=== PATIENT | female | born 1965 | race Caucasian/White ===

== ENCOUNTER 2016-09-21 11:54 | Emergency (ER) | payer BC, MEDICARE ==
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
--- NOTE | 2016-09-21 14:24 | CR ---
Chest: Portable view of the chest was obtained. Comparison: Previous chest x-ray of 03/16/16. Heart is mildly enlarged. Tortuous thoracic aorta is seen. Previous cervical spine surgery is noted. Lungs are clear. Impression: 1. Nothing acute is appreciated on portable chest x-ray. Diagnostic code #2
[2016-09-21] MEDS ORDERED: Ketorolac 60 MG/2 ML SDV IM ONE (14:53)
[2016-09-21] MEDS ORDERED: Ketorolac 30 MG/ML SDV IVPUSH ONE (15:10)
--- NOTE | 2016-09-21 15:16 | CT ---
Head CT Technique: Multiple axial sections through the brain were obtained. Intravenous contrast was not utilized. Comparison: Previous head CT study of 03/16/16. Findings: Ventricles along with basal cisterns and sulci over the convexities are within normal limits for the patient's age. No abnormal parenchymal densities are seen. No evidence of intracranial hemorrhage. No midline shift or mass effect is seen. Bone window settings were reviewed which shows mild mucosal thickening within the left maxillary sinus. Small air-fluid levels are noted within the right maxillary sinus and within the sphenoid sinus. Mild mucosal thickening is seen within sphenoid and ethmoid sinuses and frontal sinuses. Mastoid sinuses are clear. Middle ear cavities are clear. No acute calvarial abnormality is seen. Impression: 1. Sinus findings including several air-fluid levels and difficult to exclude acute sinusitis. Please correlate with the patient's symptoms. 2. No acute intracranial abnormality is seen. Diagnostic code #3
--- NOTE | 2016-09-21 15:16 | CT ---
CT cervical spine Technique: Multiple axial sections through the cervical spine were obtained. Reconstructed sagittal and coronal images were reviewed. Comparison: Previous CT cervical spine exam of 03/16/16. Findings: Degenerative change is again seen between the dens and anterior arch of C1. Anterior plate and screws are seen at C3-C4, C4-C5, C5-C6 and C6-C7. Multiple areas of neural foraminal stenosis are seen which is most severe at C3-C4 with severe stenosis on the left side and moderate to severe on the right side. No fracture is seen. No abnormal subluxation is identified. Impression: 1. Previous surgery. Degenerative change. No acute fracture or abnormal subluxation is seen. No significant change is seen from prior CT cervical spine. Diagnostic code #2
[2016-09-21 16:08] VITALS: BP 122/70
== END 2016-09-21 15:53 | disposition home or self-care (01) ==
LOC: JD.ED 11:54
DX: S06.0X9A Concussion with loss of consciousness of unspecified duration, initial encounter (principal); W19.XXXA Unspecified fall, initial encounter; Z88.0 Allergy status to penicillin; Z88.8 Allergy status to other drugs, medicaments and biological substances; Z91.030 Bee allergy status; Z79.899 Other long term (current) drug therapy; I10 Essential (primary) hypertension; K21.9 Gastro-esophageal reflux disease without esophagitis; M19.90 Unspecified osteoarthritis, unspecified site; Z96.652 Presence of left artificial knee joint; F91.8 Other conduct disorders; F41.9 Anxiety disorder, unspecified; F32.9 Major depressive disorder, single episode, unspecified; E66.9 Obesity, unspecified; Z68.30 Body mass index [BMI] 30.0-30.9, adult; E55.9 Vitamin D deficiency, unspecified; Z96.649 Presence of unspecified artificial hip joint; Z87.891 Personal history of nicotine dependence
CPT/HCPCS: 36415; 70450; 71010; 72125; 80053; 80306; 81001; 82553; 84443; 84484; 85025; 85610; 93005; 96374; 99284; G0480; J1885; P9612

== ENCOUNTER 2016-11-13 19:34 | Emergency (ER) | payer BC, MEDICARE ==
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
[2016-11-13 19:46] VITALS: BP 144/96
[2016-11-13] MEDS ORDERED: diphenhydrAMINE 50 MG/ML SDV IM ONE (20:22)
[2016-11-13] MEDS ORDERED: Ondansetron 4 MG Tab.DIS PO ONE (20:22)
[2016-11-13] MEDS ORDERED: Diazepam 5 MG Tab PO ONE (20:22)
[2016-11-13] MEDS ORDERED: Ondansetron 4 MG Tab.DIS ONE (22:18)
== END 2016-11-13 22:22 | disposition home or self-care (01) ==
LOC: JD.ED 19:34
DX: G44.209 Tension-type headache, unspecified, not intractable (principal); G43.909 Migraine, unspecified, not intractable, without status migrainosus; I10 Essential (primary) hypertension; F41.9 Anxiety disorder, unspecified; F32.9 Major depressive disorder, single episode, unspecified; E66.9 Obesity, unspecified; Z68.36 Body mass index [BMI] 36.0-36.9, adult; Z86.73 Personal history of transient ischemic attack (TIA), and cerebral infarction without residual deficits; Z90.710 Acquired absence of both cervix and uterus; Z90.721 Acquired absence of ovaries, unilateral; Z96.659 Presence of unspecified artificial knee joint; Z96.649 Presence of unspecified artificial hip joint; Z98.890 Other specified postprocedural states; Z88.0 Allergy status to penicillin; Z88.5 Allergy status to narcotic agent; Z88.8 Allergy status to other drugs, medicaments and biological substances; Z91.030 Bee allergy status; Z91.018 Allergy to other foods
CPT/HCPCS: 96372; 99284; A9270; J1200; 99283

== ENCOUNTER 2016-12-11 20:30 | Emergency (ER) | payer BC, MEDICARE ==
[2016-12-11 20:44] VITALS: BP 156/100
[2016-12-11] MEDS ORDERED: Ketorolac 30 MG/ML SDV IM ONE (21:18)
[2016-12-11] MEDS ORDERED: Acetaminophen/HYDROcodone 325-5 MG Tab PO ONE (21:18)
[2016-12-11] MEDS ORDERED: Promethazine 25 MG/ML SDV IM ONE (21:22)
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
[2016-12-11] MEDS ORDERED: LORazepam 2 MG/ML MDV IVPUSH ONE (21:48)
[2016-12-11] MEDS ORDERED: LORazepam 2 MG/ML MDV IM ONE (21:55)
== END 2016-12-12 00:46 | disposition home or self-care (01) ==
LOC: JD.ED 20:30
DX: R51 Headache (principal); I10 Essential (primary) hypertension; J45.909 Unspecified asthma, uncomplicated; K21.9 Gastro-esophageal reflux disease without esophagitis; E66.9 Obesity, unspecified; M19.90 Unspecified osteoarthritis, unspecified site; Z90.710 Acquired absence of both cervix and uterus; Z88.0 Allergy status to penicillin; Z86.73 Personal history of transient ischemic attack (TIA), and cerebral infarction without residual deficits; Z88.5 Allergy status to narcotic agent; Z88.6 Allergy status to analgesic agent; Z91.030 Bee allergy status; Z79.899 Other long term (current) drug therapy; Z96.649 Presence of unspecified artificial hip joint; Z96.659 Presence of unspecified artificial knee joint; Z98.890 Other specified postprocedural states; Z68.35 Body mass index [BMI] 35.0-35.9, adult
CPT/HCPCS: 96372; 99283; J1885; J2060; J2550

== ENCOUNTER 2017-10-10 15:46 | Emergency (ER) | payer BC, MEDICARE ==
[2017-10-10 15:59] VITALS: BP 132/91
[2017-10-10] MEDS ORDERED: HYDROmorphone 1 MG/ML Syringe IM ONE (16:10)
[2017-10-10] MEDS ORDERED: Promethazine 25 MG/ML SDV IM ONE (16:12)
[2017-10-10] MEDS ORDERED: HYDROmorphone 0.5 MG/0.5 ML SYRINGE IM ONE (16:18)
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
--- NOTE | 2017-10-11 07:37 | CT ---
CT cervical spine Technique: Multiple axial sections were obtained from above C1 inferiorly to the top of T2. Reconstructed sagittal and coronal images were reviewed. Comparison: Prior CT cervical spine exam of 09/21/16. Findings: Degenerative change is noted between the dens and anterior arch of C1. Diffuse degenerative apophyseal change is seen. Anterior plate and screws are identified at C3-C4, C4-C5, C5-C6 and C6-C7. Severe bilateral neural foraminal stenosis is noted at C3-C4. Mild right-sided neural foraminal stenosis is noted at C4-C5. Moderate bilateral neural stenosis noted at C5-C6. Mild left-sided neural foraminal stenosis is noted at C6-C7. Other neural foramina appear to be patent. Posterior spurring is noted throughout several levels of the cervical spine causing mild central canal stenosis. No fracture is identified. No abnormal subluxation is appreciated. Impression: 1. Previous surgery. 2. Degenerative change as noted above. 3. Nothing acute is identified. No appreciable change is seen from prior CT cervical spine exam. Diagnostic code #2 Agree with preliminary report issued by [facility] ([facility] preliminary report dictated on 10/10/17, 6:04 PM Central Time)
--- NOTE | 2017-10-11 07:37 | CR ---
Left forearm: Two views of the left forearm were obtained. Comparison: Prior left forearm exam of 02/06/15. Soft tissue swelling is identified. No acute fracture or other bony abnormality is seen. Impression: 1. Soft tissue swelling. No acute bony abnormality is appreciated. Diagnostic code #2
--- NOTE | 2017-10-11 07:37 | CR ---
Left foot: Four views of the left foot were obtained. Comparison: Prior left foot exam of 11/26/14. Minimal plantar spur is seen. No acute fracture, dislocation or other bony abnormality is seen. Impression: 1. Small plantar spur. No additional abnormality is appreciated on left foot exam. Diagnostic code #2
--- NOTE | 2017-10-11 07:37 | CT ---
Head CT Technique: Multiple axial sections through the brain were obtained. Intravenous contrast was not utilized. Comparison: Prior head CT study of 09/21/16. Findings: Ventricles along with basal cisterns and sulci over the convexities are within normal limits for the patient's age. No abnormal parenchymal densities are seen. No evidence of intracranial hemorrhage. No midline shift or mass effect is seen. Bone window settings were reviewed which show the visualized sinuses to appear clear. No acute calvarial abnormality is seen. Impression: 1. Nothing acute is seen on noncontrast head CT. No appreciable change is seen from prior head CT exam. Diagnostic code #1 I agree with preliminary report from [facility], finalized at 10/10/17, 6:01 PM Central Time
--- NOTE | 2017-10-11 07:37 | CR ---
Left ankle: Four views of the left ankle were obtained. Comparison: Prior left ankle study of 11/26/14. Well-corticated bony density is seen off the medial malleolus compatible with old injury. Ankle mortise is symmetric. Slight deformity from old healed fracture is seen within the distal fibula. Small plantar spur is seen. No acute fracture or other bony abnormality is identified. Impression: 1. Evidence of old injury. 2. Nothing acute is appreciated. Diagnostic code #2
--- NOTE | 2017-10-11 12:58 | CR ---
Left hand: Four views of the left hand were obtained. Comparison: Prior left hand study of 02/06/15. Joint space narrowing is noted of the distal navicular bone. Joint spaces within the hand are maintained. Findings suspicious for fractures involving the anterior and posterior corner of the base of the proximal phalanx of the fifth digit. This is seen only on the lateral view. No additional bony abnormality is seen. Impression: 1. Possible corner fractures within the base of the proximal phalanx of the fifth digit. As mentioned above, these are only seen on the lateral view. Please correlate that patient is symptomatic in this region. 2. Joint space narrowing off the distal navicular bone as an incidental finding. Diagnostic code #3
== END 2017-10-10 17:20 | disposition home or self-care (01) ==
LOC: JD.ED 15:46 → SUPCPDRO 15:46 → JD.ED 17:20
DX: S66.912A Strain of unspecified muscle, fascia and tendon at wrist and hand level, left hand, initial encounter (principal); S93.402A Sprain of unspecified ligament of left ankle, initial encounter; S00.03XA Contusion of scalp, initial encounter; S60.222A Contusion of left hand, initial encounter; S09.90XA Unspecified injury of head, initial encounter; I10 Essential (primary) hypertension; Z88.0 Allergy status to penicillin; Z88.5 Allergy status to narcotic agent; Z91.030 Bee allergy status; Z91.048 Other nonmedicinal substance allergy status; Z87.891 Personal history of nicotine dependence; W01.0XXA Fall on same level from slipping, tripping and stumbling without subsequent striking against object, initial encounter
CPT/HCPCS: 70450; 72125; 73090; 73130; 73610; 73630; 96372; 99284; J1170; J2550

== ENCOUNTER 2017-11-03 22:33 | Emergency (ER) | payer MEDICARE ==
[2017-11-03 22:52] VITALS: BP 132/91
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
[2017-11-03] MEDS ORDERED: Orphenadrine 100 MG Tab.ER PO STA (23:58)
[2017-11-03] MEDS ORDERED: Ketorolac 60 MG/2 ML SDV IM ONE (23:59)
== END 2017-11-04 00:19 | disposition home or self-care (01) ==
LOC: JD.ED 22:33
DX: G89.29 Other chronic pain (principal); M62.838 Other muscle spasm; M54.2 Cervicalgia; M54.5 Low back pain; Z88.0 Allergy status to penicillin; Z88.5 Allergy status to narcotic agent; Z91.048 Other nonmedicinal substance allergy status; Z91.030 Bee allergy status; Z79.899 Other long term (current) drug therapy; Z87.891 Personal history of nicotine dependence
CPT/HCPCS: 96372; 99283; A9270; J1885

== ENCOUNTER 2017-11-30 11:29 | Emergency (ER) | payer MEDICARE ==
[2017-11-30] MEDS ORDERED: Ondansetron 4 MG/2 ML SDV IVPUSH ONE (12:10)
[2017-11-30] MEDS ORDERED: diphenhydrAMINE 50 MG/ML SDV IVPUSH ONE (12:10)
[2017-11-30] MEDS ORDERED: LORazepam 2 MG/ML SDV IVPUSH ONE (12:10)
[2017-11-30] MEDS ORDERED: Haloperidol Lactate 5 MG/ML SDV IVPUSH ONE (12:10)
[2017-11-30] MEDS ORDERED: Sodium Chloride 0.9% 1,000 ML IV ONE (12:10)
[2017-11-30] MEDS ORDERED: Sodium Chloride 0.9% 10 ML Syringe FLUSH PRN (12:10)
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
[2017-11-30] MEDS ORDERED: Ketorolac 30 MG/ML SDV IVPUSH ONE (13:13)
[2017-11-30] MEDS ORDERED: Azithromycin 250 MG Tab PO ONE (13:22)
[2017-11-30 14:36] VITALS: BP 110/73
== END 2017-11-30 14:36 | disposition home or self-care (01) ==
LOC: JD.ED 11:29
DX: G43.909 Migraine, unspecified, not intractable, without status migrainosus (principal); M54.2 Cervicalgia; G89.29 Other chronic pain; I10 Essential (primary) hypertension; J45.909 Unspecified asthma, uncomplicated; Z79.899 Other long term (current) drug therapy; Z88.0 Allergy status to penicillin; Z88.5 Allergy status to narcotic agent; Z91.030 Bee allergy status; Z88.6 Allergy status to analgesic agent
CPT/HCPCS: 96361; 96374; 96375; 99283; A9270; J1200; J1630; J1885; J2060; J2405; J7040; J7050; 99284

== ENCOUNTER 2017-12-23 22:49 | Emergency (ER) | payer MEDICARE ==
[2017-12-23 23:03] VITALS: BP 128/85
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
--- NOTE | 2017-12-25 12:26 | CR ---
Chest and left ribs: Frontal view of the chest is obtained as well as three-views of the left ribs. Comparison: Prior chest x-ray of 03/16/16. Heart size is normal. Tortuous thoracic aorta is seen. Prior cervical spine surgery is noted. Lungs are clear with no acute parenchymal densities. Mild degenerative change is noted within the acromioclavicular joint with inferior spurring. Surgical clips are seen within the upper abdomen. No discrete fracture or other left-sided rib abnormality is appreciated. Impression: 1. No discrete left-sided rib abnormality is seen. Nondisplaced fracture could easily be missed. 2. Nothing acute is seen on frontal chest x-ray. Other incidental findings as noted above. Diagnostic code #2
--- NOTE | 2017-12-25 12:44 | CR ---
Lumbar spine: AP, lateral and coned down lateral views centered to the lumbosacral junction were obtained. Comparison: Prior lumbar spine exam of 07/05/16. Mild disc space narrowing is noted at L5-S1 which has progressed from previous exam. Other disc spaces show mild narrowing posteriorly at L1-L2 and L2-L3 which has progressed from previous study. Right hip prosthesis is seen. Degenerative apophyseal change is noted at L5-S1. Pedicles are intact. Visualized transverse and spinous processes are intact. No subluxation or fracture is seen. Surgical clips are seen within the upper left abdomen. Impression: 1. Mild degenerative change as noted above which has progressed from previous exam. 2. Other incidental findings. 3. Nothing acute is seen on three-view lumbar spine study. Diagnostic code #2
== END 2017-12-24 00:51 | disposition home or self-care (01) ==
LOC: JD.ED 22:49
DX: S39.012A Strain of muscle, fascia and tendon of lower back, initial encounter (principal); S20.212A Contusion of left front wall of thorax, initial encounter; I10 Essential (primary) hypertension; Z88.0 Allergy status to penicillin; Z88.8 Allergy status to other drugs, medicaments and biological substances; Z88.5 Allergy status to narcotic agent; Z79.899 Other long term (current) drug therapy; X58.XXXA Exposure to other specified factors, initial encounter
CPT/HCPCS: 71101-26-LT; 71101-LT; 72100; 72100-26; 99283

== ENCOUNTER 2018-01-08 17:37 | Emergency (ER) | payer MEDICARE, OTHER ==
[2018-01-08 17:48] VITALS: BP 135/87
[2018-01-08] MEDS ORDERED: HYDROmorphone 0.5 MG/0.5 ML SYRINGE IVPUSH ONE (18:11)
[2018-01-08] MEDS ORDERED: Sodium Chloride 0.9% 10 ML Syringe FLUSH PRN (18:12)
[2018-01-08] MEDS ORDERED: Sodium Chloride 0.9% 1,000 ML IV SCH (18:15)
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
[2018-01-08] MEDS ORDERED: HYDROmorphone 0.5 MG/0.5 ML SYRINGE IM ONE (18:42)
--- NOTE | 2018-01-09 14:33 | CR ---
Pelvis: AP view of the pelvis was obtained as well as slight oblique views. Comparison: Previous pelvis exam of 09/28/15. Right hip prosthesis is seen. Components are aligned. Joint space within the left hip is preserved. Sacroiliac joints are within normal limits. No fracture or other bony abnormality is seen. Impression: 1. Right hip prosthesis. 2. Nothing acute is seen on pelvis exam. Diagnostic code #2
== END 2018-01-08 19:35 | disposition home or self-care (01) ==
LOC: JD.ED 17:37
DX: S70.01XA Contusion of right hip, initial encounter (principal); K64.9 Unspecified hemorrhoids; I10 Essential (primary) hypertension; Z88.0 Allergy status to penicillin; Z88.8 Allergy status to other drugs, medicaments and biological substances; Z79.899 Other long term (current) drug therapy; Z91.030 Bee allergy status; W19.XXXA Unspecified fall, initial encounter
CPT/HCPCS: 36415; 73501; 85025; 96372; 99284; J1170

== ENCOUNTER 2018-01-09 11:59 | Emergency (ER) | payer MEDICARE, OTHER ==
[2018-01-09 12:13] VITALS: BP 133/95
[2018-01-09] MEDS ORDERED: Sodium Chloride 0.9% 10 ML Syringe FLUSH PRN (12:23)
[2018-01-09] MEDS ORDERED: Ondansetron 4 MG Tab.DIS PO ONE (12:23)
[2018-01-09] MEDS ORDERED: Sodium Chloride 0.9% 500 ML IV ONE (12:35)
[2018-01-09] MEDS ORDERED: HYDROmorphone 0.5 MG/0.5 ML SYRINGE IVPUSH ONE ×2 (12:35→14:01)
[2018-01-09] MEDS ORDERED: Metoclopramide 10 MG/2 ML SDV IVPUSH ONE (12:35)
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
--- NOTE | 2018-01-09 13:08 | PCM.SN ---
- Free Text/Narrative Note: IV placement by GATE OPERATOR in ER for difficult IV placement. IV obtained in one attempt in left arm 22g with ultrasound guidance, blood return possible so 10mL of blood drawn for labs. IV CDI, infused 10mL of NS without infiltration.
--- NOTE | 2018-01-09 13:45 | CT ---
Head CT Technique: Multiple axial sections through the brain were obtained. Intravenous contrast was not utilized. Comparison: Prior head CT study of 10/10/17. Findings: Multiple axial sections were obtained through the brain. Intravenous contrast was not utilized. No abnormal parenchymal densities are seen. No evidence of intracranial hemorrhage. No midline shift or mass effect is seen. Bone window settings were reviewed which shows no acute calvarial abnormality. Visualized sinuses are clear. Impression: 1. Nothing acute is seen on noncontrast head CT study. Findings are stable from previous head CT exam. Diagnostic code #1
[2018-01-09] MEDS ORDERED: Ketorolac 30 MG/ML SDV IVPUSH SCH (14:15)
== END 2018-01-09 16:23 | disposition home or self-care (01) ==
LOC: JD.ED 11:59
DX: R55 Syncope and collapse (principal); R11.2 Nausea with vomiting, unspecified; E66.9 Obesity, unspecified; G43.909 Migraine, unspecified, not intractable, without status migrainosus; Z88.0 Allergy status to penicillin; Z88.8 Allergy status to other drugs, medicaments and biological substances; Z88.5 Allergy status to narcotic agent; Z91.030 Bee allergy status; Z79.899 Other long term (current) drug therapy
CPT/HCPCS: 36415; 70450; 80053; 85025; 93005; 93225; 93226; 96361; 96374; 96375; 96376; 99285; A9270; J1170; J1885; J2765; J7040; J7050; 93010; 99284-25

== ENCOUNTER 2018-02-03 20:00 | Emergency (ER) | payer BC, MEDICARE ==
[2018-02-03 20:49] VITALS: BP 133/76
[2018-02-03] MEDS ORDERED: Sodium Chloride 0.9% 1,000 ML IV SCH (21:15)
--- NOTE | 2018-02-03 21:25 | EDM.PDOC ---
ED HPI GENERAL MEDICAL PROBLEM - General Chief Complaint: ENT Problem Stated Complaint: LEFT EAR & HEAD HURT Time Seen by Provider: 02/03/18 20:58 Source of Information: Reports: Patient, Family () History Limitations: Reports: No Limitations - History of Present Illness INITIAL COMMENTS - FREE TEXT/NARRATIVE: The patient states that she developed left ear pain about 6 weeks ago. She saw her PCP, Natalya Parra, who diagnosed her with a middle ear infection and prescribed a Z-Amadou. The patient states that it did not help. She states that she followed up with Ms. Parra, who advised patience, and prescribed no new medications. The patient states that her symptoms persisted, and is unclear why she didn't follow-up until yesterday, when she was seen at the clinic. She states that her examination was limited, due to canal swelling. She was prescribed Ciprodex, 4 drops BID and doxycycline 100 mg, 1 tab po BID x 10 days. She now presents to the ED, because she has not improved. The patient states that she has had similar symptoms many times in the past, and even underwent bilateral myringotomies at 31 years of age. She indicates that she has had mastitis in the past. Her former ENT is in [facility]. Left Ear Pain Score (Numeric/FACES): 10 - Related Data Allergies Allergy/AdvReac Type Severity Reaction Status Date / Time Penicillins Allergy Severe Wheezing Verified 02/03/18 20:46 succinylcholine Allergy Severe Anaphylactic Verified 02/03/18 20:46 [Succinylcholine] Shock coconut oil Allergy Hives Verified 02/03/18 20:46 codeine Allergy Rash Verified 02/03/18 20:46 oxycodone HCl [From Percocet] Allergy Hives Verified 02/03/18 20:46 venom-honey bee Allergy Anaphylactic Verified 02/03/18 20:46 [bee venom (honey bee)] Shock Home Meds: Home Meds Eszopiclone [Lunesta] 1 mg PO BEDTIME 10/10/17 [History] Prazosin HCl [Prazosin] 2 mg PO DAILY 10/10/17 [History] QUEtiapine [SEROquel] 150 mg PO DAILY 10/10/17 [History] LORazepam [Ativan] 0.5 mg PO BID PRN #10 tab 01/09/18 [Rx] Ondansetron [Zofran ODT] 4 mg PO Q6H PRN #10 tab.dis 01/09/18 [Rx] Past Medical History HEENT History: Reports: Cataract, Impaired Vision Cardiovascular History: Reports: Hypertension Respiratory History: Reports: Asthma Gastrointestinal History: Reports: Diverticulosis, GERD, PUD Genitourinary History: Reports: Renal Calculus [employer] History: Reports: Fibroids Musculoskeletal History: Reports: Back Pain, Chronic, Fracture (neck 2011, left leg 2015, left forearm, right wrist), Neck Pain, Chronic, Osteoarthritis Neurological History: Reports: Migraines Psychiatric History: Reports: Aggressive/Hostile Behaviors, Anxiety, Depression , PTSD Endocrine/Metabolic History: Reports: Obesity/BMI 30+, Vitamin D Deficiency - Infectious Disease History Infectious Disease History: Reports: C-Difficile, Meningitis - Past Surgical History HEENT Surgical History: Reports: Eye Surgery, Myringotomy w Tube(s) GI Surgical History: Reports: Appendectomy, Bariatric Procedure (Gastric sleeve) , Cholecystectomy Female Surgical History: Reports: Hysterectomy, Salpingo-Oophorectomy, Ureteral Stent (right) Neurological Surgical History: Reports: C-Spine (C3-C7 ACDF) Musculoskeletal Surgical History: Reports: Hip Replacement (right), Knee Replacement (left), ORIF (left leg) Oncologic Surgical History: Reports: Biopsy of Breast (right, x 2) Social & Family History - Family History Family Medical History: Noncontributory Cardiac: Reports: CAD, Cardiomyopathy Respiratory: Reports: COPD, Other (See Below) Other Respiratory Family Hisory: emphysema GI: Reports: Hepatitis OBGYN: Reports: Endocrine/Metabolic: Reports: Diabetes, type II Oncologic: Reports: Breast, Liver, Pancreatic - Tobacco Use Smoking Status *Q: Former Smoker Used Tobacco, but Quit: Yes Month/Year Tobacco Last Used: 1990 - Caffeine Use Caffeine Use: Reports: None Other Caffeine Use: once a week - Recreational Drug Use Recreational Drug Use: No - Living Situation & Occupation Living situation: Reports: , with Spouse Occupation: Unemployed ED ROS ENT - Review of Systems Review Of Systems: ROS reveals no pertinent complaints other than HPI. ED EXAM, ENT - Physical Exam Exam: See Below Exam Limited By: Other (Patient jumps inordinately with even the slightest touch of even her hair. Did not allow meaningful examination of her left earr or mastoid process) Eye Exam: Bilateral Eye: EOMI, Normal Inspection Ears: Other (Right external auditory canal and TM appear to be normal. Left external auditory canal with color, but mildly swollen. Of what was visible of the left TM, it appeared to be pantoja in color) Nose: Normal Inspection, Normal Mucousa, No Blood Mouth/Throat: Normal Inspection, Normal Lips Head: Atraumatic, Normocephalic Neck: Normal Inspection, Full Range of Motion. No: Lymphadenopathy (L), Lymphadenopathy (R) Course - Vital Signs Last Recorded V/S: Last Vital Signs Temp 36.6 C 02/03/18 20:47 Pulse 86 02/03/18 20:47 Resp 18 02/03/18 20:47 BP 133/76 02/03/18 20:47 Pulse Ox 97 02/03/18 20:47 - Orders/Labs/Meds Orders: Active Orders 24 hr Category Date Time Status Head w Cont [CT] Stat Exams 02/03/18 21:12 Ordered Sodium Chloride 0.9% @ 150 MLS/HR (1000ml Bag) Med 02/03/18 21:15 Ordered Sodium Chloride 0.9% [Normal Saline] 1,000 ml IV ASDIRECTED Medication Orders Sodium Chloride (Normal Saline) 1,000 mls @ 150 mls/hr IV ASDIRECTED FAB Last Admin: 02/03/18 21:35 Dose: 150 mls/hr Labs: Laboratory Tests 02/03/18 02/03/18 Range/Units 21:29 21:29 WBC 4.94 (3.98-10.04) K/mm3 RBC 4.46 (3.98-5.22) M/mm3 Hgb 14.0 (11.2-15.7) gm/L Hct 42.1 (34.1-44.9) % MCV 94.4 (79.4-94.8) fl MCH 31.4 (25.6-32.2) pg MCHC 33.3 (32.2-35.5) g/dl RDW Std Deviation 43.2 (36.4-46.3) fL Plt Count 180 L (182-369) K/mm3 MPV 11.2 (9.4-12.3) fl Neutrophils % (Manual) 51 (40-60) % Band Neutrophils % 0 (0-10) % Lymphocytes % (Manual) 43 H (20-40) % Atypical Lymphs % 0 % Monocytes % (Manual) 2 (2-10) % Eosinophils % (Manual) 4 (0.7-5.8) % Basophils % (Manual) 0 L (0.1-1.2) Platelet Estimate Adequate RBC Morph Comment Normal Sodium 141 (136-145) mEq/L Potassium 3.7 (3.5-5.1) mEq/L Chloride 106 (98-107) mEq/L Carbon Dioxide 28 (21-32) mEq/L Anion Gap 10.7 (5-15) BUN 17 (7-18) mg/dL Creatinine 1.2 H (0.55-1.02) mg/dL Est Cr Clr Drug Dosing 52.72 mL/min Estimated GFR (MDRD) 47 (>60) mL/min BUN/Creatinine Ratio 14.2 (14-18) Glucose 85 (74-106) mg/dL Calcium 9.1 (8.5-10.1) mg/dL Meds: Medications Generic Name Dose Route Start Last Admin Trade Name Freq PRN Reason Stop Dose Admin Sodium Chloride 1,000 mls @ 150 mls/hr 02/03/18 21:15 02/03/18 21:35 Normal Saline IV 150 mls/hr ASDIRECTED FAB Administration Discontinued Medications Generic Name Dose Route Start Last Admin Trade Name Freq PRN Reason Stop Dose Admin Iopamidol 50 ml 02/03/18 22:02 02/03/18 22:03 Isovue-300 (61%) IVPUSH 02/03/18 22:03 50 ml ONETIME ONE Administration - Re-Assessments/Exams Free Text/Narrative Re-Assessment/Exam: 02/03/18 22:14 If the patient really has left external otitis media, she is already on appropriate treatment, day 1 of 10, and just needs to continue it. If, on the other hand, the patient has left mastitis, then IV antibiotics would be indicated. 02/03/18 22:21 The CBC has returned normal, with no elevated WBC count. CT of the head with IV contrast is read by [facility] as "No acute findings". 02/03/18 22:40 Test results discussed with the patient and her . I splinted the patient' s CBC is normal, with no elevated WBC count to suggest an infection, that her chemistry panel is entirely normal, which is reassuring that nothing terrible is happening, and that the CT scan of her head, specifically, the left mastoid process, is normal, with no suggestion of an infection. I recommended, as above , that she continue with the Ciprodex and doxycycline, and then told her that I would be referring her to an ENT in [place]. The patient became hostile, accusing me of claiming that I did not believe her. She told Mallory BARNARD, who was accompanying me, to just rip the IV out of her so that she can get the fk out of here. The patient has a well-documented history of drug-seeking behavior. I was informed by Mallory BARNARD that the patient asked her why I was here when she was initially put into a room, that I was supposed to be the day-doctor (in fact, I was the day-shift physician, however, we had an exceptionally busy day, and I have stayed late to help out). This indicates that the patient has been monitoring which physician is on duty, and has been doctor shopping. Based on this information, her examination that is not consitent with her subjective complaints, including tenderness of her hair, a completely normal workup, and her hostility when not offered opioids, it appears that the patient is again drug seeking. Departure - Departure Time of Disposition: 22:22 Disposition: Home, Self-Care 01 Condition: Good Clinical Impression: Left ear pain, Drug-seeking behavior - Discharge Information *PRESCRIPTION DRUG MONITORING PROGRAM REVIEWED*: Not Applicable *COPY OF PRESCRIPTION DRUG MONITORING REPORT IN PATIENT BETHEL: Not Applicable Instructions: Earache, Adult Referrals: Xu Das MD [Ordering Only Provider] - Forms: ED Department Discharge Additional Instructions: You were seen in the emergency room for 6 weeks of left ear pain. Workup in the ER included blood work and a CT scan of your head with IV contrast. Your entire workup was normal. You do not have an elevated white blood cell count to suggest an infection. The CT scan of your head was completely normal, with no suggestion of left mastitis. We recommend that you continue to take the Ciprodex eardrops and oral doxycycline that you had previously been prescribed. Follow-up with the ENT Dr. Xu Das in [place], at the next available appointment. If any other problems, please do not hesitate to return to the ER. - My Orders Last 24 Hours: My Active Orders 08/18/18 21:12 Head w Cont [CT] Stat 02/03/18 21:15 Sodium Chloride 0.9% @ 150 MLS/HR (1000ml Bag) Sodium Chloride 0.9% [Normal Saline] 1,000 ml IV ASDIRECTED - Assessment/Plan Last 24 Hours: My Active Orders 02/03/18 21:12 Head w Cont [CT] Stat 02/03/18 21:15 Sodium Chloride 0.9% @ 150 MLS/HR (1000ml Bag) Sodium Chloride 0.9% [Normal Saline] 1,000 ml IV ASDIRECTED
[2018-02-03] MEDS ORDERED: Iopamidol 612 MG/ML 50 ML SDV IVPUSH ONE (22:02)
--- NOTE | 2018-02-07 06:52 | CT ---
Head CT Technique: Multiple axial sections through the brain were obtained. Intravenous contrast was utilized. Comparison: Prior non-contrast CT study of 01/09/18. Findings: Ventricles along with basal cisterns and sulci over the convexities are within normal limits for the patient's age. No abnormal parenchymal densities are seen. No evidence of intracranial hemorrhage. No midline shift or mass effect is seen. Visualized mastoid sinuses and middle ear cavities are clear. Visualized paranasal sinuses are clear. No acute calvarial abnormality is appreciated. Impression: 1. No abnormality is identified on contrast-enhanced head CT. Diagnostic code #1 I agree with preliminary report from [facility], finalized at 02/03/18, 11:08 PM Central Time
== END 2018-02-03 23:15 | disposition home or self-care (01) ==
LOC: JD.ED 20:00
DX: H92.02 Otalgia, left ear (principal); Z76.5 Malingerer [conscious simulation]; I10 Essential (primary) hypertension; Z91.030 Bee allergy status; Z88.5 Allergy status to narcotic agent; Z79.899 Other long term (current) drug therapy; E66.9 Obesity, unspecified; Z88.0 Allergy status to penicillin; Z91.018 Allergy to other foods
CPT/HCPCS: 36415; 70460; 80048; 85007; 85027; 96360; 96361; 99284; J7040; Q9967; 99283

== ENCOUNTER 2018-02-09 15:02 | Emergency (ER) | payer BC, MEDICARE ==
[2018-02-09 15:39] VITALS: BP 148/93
== END 2018-02-09 15:50 | disposition left against medical advice (07) ==
LOC: JD.ED 15:02
DX: Z53.21 Procedure and treatment not carried out due to patient leaving prior to being seen by health care provider (principal)

== ENCOUNTER 2018-07-08 17:26 | Emergency (ER) | payer BC, MEDICARE ==
[2018-07-08 17:41] VITALS: BP 102/47
[2018-07-08] MEDS ORDERED: HYDROmorphone 1 MG/ML Syringe IM ONE (18:20)
[2018-07-08] MEDS ORDERED: Promethazine 25 MG/ML SDV IM ONE (18:21)
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
--- NOTE | 2018-07-08 19:17 | CT ---
CT cervical spine Technique: Multiple axial sections were obtained from the top of C1 inferiorly to the top of T1. Reconstructed sagittal and coronal images were reviewed. Comparison: Prior CT cervical spine exam of 10/10/17. Findings: Extensive surgery is identified with anterior plate and screws from C3-4 through C6-7. Severe bilateral neural foraminal stenosis is noted at C3-4 which is stable from previous exam. Mild right-sided neural foraminal stenosis is noted at C4-5 which is stable. Moderate bilateral neural foraminal stenosis is noted at C5-6 which is stable. Mild neural foraminal stenosis is noted on the left side at C6-7. This is also stable. No bony central canal stenosis is seen. Degenerative change is noted between the dens and anterior arch of C1. Degenerative apophyseal change is seen throughout cervical spine. No acute fracture or subluxation is seen. Impression: 1. Extensive cervical spine surgery. Degenerative change as noted above which appears stable from previous exam. 2. No acute fracture or abnormal subluxation is seen. Diagnostic code #2
[2018-07-08] MEDS ORDERED: LORazepam 2 MG/ML SDV IM ONE (19:35)
--- NOTE | 2018-07-09 07:22 | CR ---
Left shoulder: Three views of the left shoulder were obtained. Comparison: Prior left shoulder study of 06/09/14. Glenohumeral joint appears within normal limits. Previous cervical spine surgery is noted. Joint space narrowing is noted within the acromioclavicular joint. Very slight irregularity is identified within the medial clavicle. Difficult to exclude a nondisplaced fracture. No additional abnormality is seen. Impression: 1. Slight degenerative change. 2. Minimal irregularity within the medial clavicle and difficult to exclude nondisplaced fracture. Please correlate if patient is symptomatic to this region. 3. Left shoulder study is otherwise unremarkable. Diagnostic code #3
== END 2018-07-08 20:00 | disposition home or self-care (01) ==
LOC: JD.ED 17:26
DX: S16.1XXA Strain of muscle, fascia and tendon at neck level, initial encounter (principal); R55 Syncope and collapse; S40.012A Contusion of left shoulder, initial encounter; F41.1 Generalized anxiety disorder; F43.0 Acute stress reaction; I10 Essential (primary) hypertension; Z88.0 Allergy status to penicillin; Z88.8 Allergy status to other drugs, medicaments and biological substances; Z88.5 Allergy status to narcotic agent; Z91.030 Bee allergy status; Z79.899 Other long term (current) drug therapy; W19.XXXA Unspecified fall, initial encounter
CPT/HCPCS: 36415; 72125; 73030; 80053; 83735; 85007; 85027; 96372; 99284; J1170; J2060; J2550

== ENCOUNTER 2018-09-05 16:03 | Emergency (ER) | payer BC, MEDICARE ==
[2018-09-05 16:21] VITALS: BP 115/82
[2018-09-05] MEDS ORDERED: Ondansetron 4 MG Tab.DIS PO ONE (16:21)
[2018-09-05] MEDS ORDERED: Sodium Chloride 0.9% 1,000 ML IV ONE (16:32)
[2018-09-05] MEDS ORDERED: Ondansetron 4 MG/2 ML SDV IVPUSH ONE (16:34)
[2018-09-05] MEDS ORDERED: Ketorolac 30 MG/ML SDV IVPUSH ONE (16:35)
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
[2018-09-05] MEDS ORDERED: Acetaminophen/HYDROcodone 325-5 MG Tab PO ONE (18:00)
--- NOTE | 2018-09-06 06:55 | CR ---
Abdomen: Supine view of the abdomen was obtained. Comparison: Prior abdominal x-ray of 07/14/15. Surgical clips are seen within the upper abdomen. Some of these are an interval change from previous exam. Bowel gas pattern is normal. Calcifications are seen within the pelvis which are compatible with phleboliths. Right hip prosthesis is noted. Nothing acute is appreciated. Impression: 1. Findings as noted above. Nothing acute is appreciated on supine abdominal x-ray. Diagnostic code #2
== END 2018-09-05 18:20 | disposition home or self-care (01) ==
LOC: SUPCPDRO 16:03 → JD.ED 16:03
DX: G89.18 Other acute postprocedural pain (principal); I10 Essential (primary) hypertension; J45.909 Unspecified asthma, uncomplicated; Z87.891 Personal history of nicotine dependence; Z88.0 Allergy status to penicillin; Z88.8 Allergy status to other drugs, medicaments and biological substances; Z88.5 Allergy status to narcotic agent; Z91.030 Bee allergy status; Z79.899 Other long term (current) drug therapy; Z87.42 Personal history of other diseases of the female genital tract; Z98.890 Other specified postprocedural states
CPT/HCPCS: 36415; 74018; 80053; 83605; 83735; 85025; 87040; 96361; 96374; 96375; 99283; A9270; J1885; J2405; J7040; 99284

== ENCOUNTER 2018-09-21 16:28 | Emergency (ER) | payer BC, MEDICARE ==
[2018-09-21 16:51] VITALS: BP 131/91
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
[2018-09-21] MEDS ORDERED: Ondansetron 4 MG/2 ML SDV IVPUSH ONE (18:53)
[2018-09-21] MEDS ORDERED: Sodium Chloride 0.9% 10 ML Syringe FLUSH PRN (18:53)
[2018-09-21] MEDS ORDERED: HYDROmorphone 1 MG/ML Syringe IVPUSH ONE (18:55)
[2018-09-21] MEDS ORDERED: Sodium Chloride 0.9% 1,000 ML IV SCH (19:00)
== END 2018-09-21 20:43 | disposition home or self-care (01) ==
LOC: JD.ED 16:28
DX: N93.9 Abnormal uterine and vaginal bleeding, unspecified (principal); R10.32 Left lower quadrant pain; R11.2 Nausea with vomiting, unspecified; I10 Essential (primary) hypertension; Z88.0 Allergy status to penicillin; Z88.8 Allergy status to other drugs, medicaments and biological substances; Z91.030 Bee allergy status; Z88.5 Allergy status to narcotic agent; Z79.899 Other long term (current) drug therapy; Z87.891 Personal history of nicotine dependence
CPT/HCPCS: 36415; 80053; 81001; 85025; 96361; 96374; 96375; 99284; J1170; J2405; J7040

== ENCOUNTER 2018-10-23 19:40 | Emergency (ER) | payer MEDICARE, BC ==
[2018-10-23 19:49] VITALS: BP 133/84
[2018-10-23] MEDS ORDERED: LORazepam 1 MG Tab PO ONE (20:22)
[2018-10-23] MEDS ORDERED: Aspirin 81 MG Tab.Chew PO ONE (20:22)
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
== END 2018-10-23 21:53 | disposition home or self-care (01) ==
LOC: JD.ED 19:40
DX: R55 Syncope and collapse (principal); R07.89 Other chest pain; Z87.891 Personal history of nicotine dependence; I10 Essential (primary) hypertension; Z79.899 Other long term (current) drug therapy; Z88.0 Allergy status to penicillin; Z91.018 Allergy to other foods; Z88.6 Allergy status to analgesic agent; Z91.030 Bee allergy status
CPT/HCPCS: 36415; 80053; 84484; 85025; 93005; 99285; A9270; 93010; 99284